=== PATIENT | female | born 1945 | race Caucasian/White ===

== ENCOUNTER → 2016-09-01 | Outpatient (CLI) | payer OTHER ==
[~2016-09-01] MED LIST: ASPI81TA28 PO; ATOR10TA82 PO; CHOL2000 PO; CLOP1TAB15 PO; EZET10TA63 PO; HYDR-5688 PO; INSU100I23 SQ; LISI40TA PO; NVLGI/PEN SQ; SPIR25TA PO
[2016-09-01 12:35] LABS: ESTIMATED AVERAGE GLUCOSE 263 mg/dl; HA1C FLAG Normal (Normal)
[2016-09-01 12:50] LABS: RATIO 24.6 mcg/mg (0-30.0)
== END | disposition home or self-care (01) ==
LOC: C.LABBFT 09:15
PROVIDERS: ATTEND Nurse Practitioner Family
DX: E11.65 Type 2 diabetes mellitus with hyperglycemia (principal)

== ENCOUNTER → 2016-12-17 | Day surgery (SDC) | payer OTHER ==
[2016-11-27 12:02] VITALS: Ht 165.1 cm; Wt 93.6 kg
[~2016-12-17] VITALS: Ht 165.1 cm; Wt 93.6 kg
[~2016-12-17] MED LIST changes: +500ML BSS 0.3ML EPI 1:1000PF IRRIG ONE; +ACETAMINOPHEN 325 MG TAB PO PRN; +AMVISC PLUS 0.8ML SYRINGE INT OCU ONE; -ATOR10TA82 PO; +ATOR10TA88 PO; +ATROPINE SULFATE 0.1 MG/ML 5ML SYR IV PRN; +BETAXOLOL HCL 0.25% OP SUSP PER DROP CHARGE OPR SCH; +BRIMONIDINE TART 0.2% OP SOLN PER DROP CHARGE ONE; +BSS FLUSH ONE; +ENDOCOAT 0.85ML SYRINGE INT OCU ONE; -EZET10TA63 PO; +EpHEDrine SULFATE INJ 50 MG/ML AMP IV PRN; +EpINEphrine INJ 1MG/ML AMP 1 MG/ML AMP ONE; +FENTANYL CITRATE INJ 50 MCG/1 ML 2 ML VIAL IV PRN; +FLUMAZENIL 0.1 MG/1 ML 10 ML VIAL IV PRN; +HYDROmorphone INJ 2 MG/ML SYR/VIAL IV PRN; +LABETALOL HCL IV 5 MG/ML 20ML IV PRN; +LACTATED RINGER'S 1000ML 500 ML IV SCH; +LIDOCAINE 4% OP SOLN DROP CHARGE ONE; +LIDOCAINE 4% OP SOLN DROP CHARGE OPR SCH; +LIDOCAINE HCL 1% MPF 2 ML VIAL ONE; +MEPERIDINE HCL 25 MG/ML CARP IV PRN; +MIDAZOLAM HCL 1 MG/ML 2ML VIAL ONE; +MIX: 4ML BSS 1ML EPI 1:1000 PF INSTIL ONE; +MOXIFLOXACIN OPH SOLN PER DROP CHARGE ONE; +NALOXONE HCL 0.4 MG/1 ML VIAL/CARP IV PRN; +OCUCOAT 1 ML SOLN IO ONE; +ONDANSETRON INJ 2 MG/ML 2 ML VIAL IV PRN; +PHENYLEPHRINE 100MCG/ML 5ML SYR IV PRN; +POVIDONE-IODINE OP SOLN 30 ML BTL ONE; +PROPARACAINE 0.5% OP SOLN PER DROP CHARGE OPR SCH; +TOBRAMYCIN/DEXAMETHASONE OPH OINT PER APPLN CHARGE ONE
--- NOTE | 2016-12-17 08:54 | History & Physical Bridge - SC ---
H&P Re-Evaluation Bridge Note: I have examined the patient, reviewed the History & Physical and in the interval since the performance of the History & Physical I have noted the following changes of clinical significance: No changes noted
[2016-12-17] MEDS: PHENYLEPHRINE HCL 2.5% OP SOLN PER DROP CHARGE OPR SCH ×2 (09:45→09:50)
[2016-12-17] MEDS: TROPICAMIDE 1% OP SOLN PER DROP CHARGE OPR SCH ×2 (09:46→09:51)
[2016-12-17] MEDS: CYCLOPENTOLATE HCL 1% OP SOLN PER DROP CHARGE OPR SCH ×2 (09:47→09:52)
[2016-12-17] MEDS: MOXIFLOXACIN OPH SOLN PER DROP CHARGE OPR SCH ×2 (09:48→09:58)
--- NOTE | 2016-12-17 11:02 | Discharge Instructions-SurgCtr ---
Discharge Instructions Date of Service Dec 17, 2016. Visit Reason for Visit: Cataract Right Eye Discharge Discharge Diagnosis / Problem: lens implant right eye Discharge Goals Goal(s): Improve function Activity Recommendations Activity Limitations: resume your previous activity Lifting Limitations: no more than 10 pounds Exercise/Sports Limitations: gradually increase as tolerated May Resume Sexual Activity: when tolerated Shower/Bathe: tomorrow Driving or Machine Use: resume 1 day after discharge Anesthesia . Post Anesthesia Instructions: If you have had General Anesthesia or IV Sedation: * Do not drive today. * Resume driving when surgeon permits. * Do not make important decisions or sign legal documents today. * Call surgeon for: 1. Temperature elevations greater than 101 degrees F. 2. Uncontrollable pain. 3. Excessive bleeding. 4. Persistent nausea and vomiting. 5. Medication intolerance (nausea, vomiting or rash). * For nausea and vomiting use only clear liquids such as: tea, soda, bouillon until nausea subsides, then gradually increase diet as tolerated. * If you have any concerns or questions, call your surgeon's office. If physician is unavailable and it is an emergency, call 911 or go to the nearest emergency room. . Instructions / Follow-Up Instructions / Follow-Up ACTIVITY RECOMMENDATIONS: * Light activities. * Mild irritation and blurred vision are common for the first few days. * You may walk outside, read, watch television. * Redness around the white part of the eye is common. MEDICATIONS: Resume previous medications unless instructed otherwise by your surgeon. Start all eye drops at 2 pm today: * Eye drops (today and tomorrow): Prednisone - one drop in operative eye every 3 hours while awake Ofloxacin - one drop in operative eye every 3 hours while awake Ilevro - one drop in operative eye once a day SPECIAL CARE INSTRUCTIONS: * Tape plastic shield over eye to sleep at night. Call your doctor at with any concerns or problems. FOLLOW UP VISIT: Follow-up with Dr Montez at [place] office as scheduled. Diet Recommendations Home Diet: no limitations Procedures Procedures Performed: cataract extraction with lens implant Pending Studies Studies pending at discharge: no Medical Emergencies . Who to Call and When: Medical Emergencies: If at any time you feel your situation is an emergency, please call 911 immediately. . Non-Emergent Contact Non-Emergency issues call your: Teacher [employer] Call Non-Emergent contact if: your pain is not controlled [phone] . . "Provider Documentation" section prepared by Benji Montez. .
--- NOTE | 2016-12-17 11:04 | [facility] Operative Report ---
Operative Report Date of Service Dec 17, 2016. Operative Report 1. PREOPERATIVE DIAGNOSIS: Senile nuclear cataract, right eye. 2. POSTOPERATIVE DIAGNOSIS: Senile nuclear cataract, right eye. 3. PROCEDURE: Phacoemulsification of right cataract with posterior chamber lens implant, type Bausch & Lomb, model MI60L, power +23.5 diopters. ANESTHESIA: Local standby. SURGEON: Dr. Montez. COMPLICATIONS: None. OPERATING TIME: 10 minutes. 4. OPERATION AND FINDINGS: DESCRIPTION OF PROCEDURE: The right pupil was dilated. The anesthetic was administered using a topical technique. The right eye was prepped and draped. A speculum was placed. A clear corneal incision was formed. The chamber was filled with Amvisc Plus and Endocoat. Epinephrine solution was used. A paracentesis was placed. A capsulorrhexis was performed. The nucleus was hydrodissected. A dense lens was removed with phacoemulsification. Time was 12.50 seconds. The aspiration unit was used to remove the cortex. The capsule was filled with Amvisc Plus. The lens implant was folded and placed into the capsule. The incision was hydrated. The Amvisc was aspirated. The wound was secure. The chamber was deep. The pupil was round. Brimonidine, TobraDex ointment and Vigamox solution were placed. The speculum was removed. The patient was returned to the Recovery Room in stable condition. I attest to the content of the Intraoperative Record and any orders documented therein. Any exceptions are noted below. The scribe's documentation has been prepared in my presence, under my direction and personally reviewed by me in its entirety. I confirm that the note above accurately reflects all work, treatment, procedures, and medical decision making performed by me. I personally scribed for Benji Montez M.D. ([place]) on 12/17/16 at 11:04. Electronically submitted by Courtney Toro ([facility]).
[2016-12-17 11:06] VITALS: TEMP 36.3
--- NOTE | 2016-12-17 11:16 | Anesthesia Progress Nt - [facility] ---
Anesthesia Post Op Note Date & Time Dec 17, 2016 at 11:15 Vital Signs Pain Intensity: 0 Vital Signs Past 12 Hours Date Time Temp Pulse Resp B/P (MAP) Pulse Ox O2 Delivery O2 Flow Rate FiO2 12/17/16 11:06 36.3 65 16 163/75 (104) 96 Room Air 12/17/16 09:36 36.8 58 22 149/79 (102) 95 Room Air Notes Mental Status: alert / awake / arousable, participated in evaluation Pt Amnestic to Procedure: Yes Nausea / Vomiting: adequately controlled Pain: adequately controlled Airway Patency, RR, SpO2: stable & adequate BP & HR: stable & adequate Hydration State: stable & adequate Anesthetic Complications: no major complications apparent
[2016-12-17 11:29] VITALS: BP 113/71; PULSE 54; O2SAT 94
== END | disposition home or self-care (01) ==
LOC: X.SURG 08:57
PROVIDERS: ATTEND Specialist
DX: H25.11 Age-related nuclear cataract, right eye (principal); I10 Essential (primary) hypertension; Z79.899 Other long term (current) drug therapy; Z79.82 Long term (current) use of aspirin

== ENCOUNTER → 2017-01-07 | Day surgery (SDC) | payer OTHER ==
[2016-12-25 14:53] VITALS: Ht 165.1 cm; Wt 93.6 kg
[~2017-01-07] VITALS: Ht 165.1 cm; Wt 93.6 kg
[~2017-01-07] MED LIST changes: +BETAXOLOL HCL 0.25% OP SUSP PER DROP CHARGE OPL SCH; -BETAXOLOL HCL 0.25% OP SUSP PER DROP CHARGE OPR SCH; -FENTANYL CITRATE INJ 50 MCG/1 ML 2 ML VIAL IV PRN; -FLUMAZENIL 0.1 MG/1 ML 10 ML VIAL IV PRN; -HYDROmorphone INJ 2 MG/ML SYR/VIAL IV PRN; -LABETALOL HCL IV 5 MG/ML 20ML IV PRN; +LIDOCAINE 4% OP SOLN DROP CHARGE OPL SCH; -LIDOCAINE 4% OP SOLN DROP CHARGE OPR SCH; -MEPERIDINE HCL 25 MG/ML CARP IV PRN; -NALOXONE HCL 0.4 MG/1 ML VIAL/CARP IV PRN; +NovoLIN-R INSULIN PER UNIT CHARGE IV STA; +NovoLIN-R INSULIN PER UNIT CHARGE ONE; -ONDANSETRON INJ 2 MG/ML 2 ML VIAL IV PRN; -PHENYLEPHRINE 100MCG/ML 5ML SYR IV PRN; +PROPARACAINE 0.5% OP SOLN PER DROP CHARGE OPL SCH; -PROPARACAINE 0.5% OP SOLN PER DROP CHARGE OPR SCH
[2017-01-07] MEDS: PHENYLEPHRINE HCL 2.5% OP SOLN PER DROP CHARGE OPL SCH ×2 (09:11→09:16)
[2017-01-07] MEDS: TROPICAMIDE 1% OP SOLN PER DROP CHARGE OPL SCH ×2 (09:12→09:17)
[2017-01-07] MEDS: CYCLOPENTOLATE HCL 1% OP SOLN PER DROP CHARGE OPL SCH ×2 (09:13→09:18)
[2017-01-07] MEDS: MOXIFLOXACIN OPH SOLN PER DROP CHARGE OPL SCH ×2 (09:14→09:24)
--- NOTE | 2017-01-07 10:03 | Discharge Instructions-SurgCtr ---
Discharge Instructions Date of Service Jan 07, 2017. Visit Reason for Visit: Cataract Left Eye Discharge Discharge Diagnosis / Problem: lens implant left eye Discharge Goals Goal(s): Improve function Medications Stopped Medications Name(s): plavix and asa last dose on thursday Activity Recommendations Activity Limitations: resume your previous activity Lifting Limitations: no more than 10 pounds Exercise/Sports Limitations: gradually increase as tolerated May Resume Sexual Activity: when tolerated Shower/Bathe: tomorrow Driving or Machine Use: resume 1 day after discharge Anesthesia . Post Anesthesia Instructions: If you have had General Anesthesia or IV Sedation: * Do not drive today. * Resume driving when surgeon permits. * Do not make important decisions or sign legal documents today. * Call surgeon for: 1. Temperature elevations greater than 101 degrees F. 2. Uncontrollable pain. 3. Excessive bleeding. 4. Persistent nausea and vomiting. 5. Medication intolerance (nausea, vomiting or rash). * For nausea and vomiting use only clear liquids such as: tea, soda, bouillon until nausea subsides, then gradually increase diet as tolerated. * If you have any concerns or questions, call your surgeon's office. If physician is unavailable and it is an emergency, call 911 or go to the nearest emergency room. . Instructions / Follow-Up Instructions / Follow-Up ACTIVITY RECOMMENDATIONS: * Light activities. * Mild irritation and blurred vision are common for the first few days. * You may walk outside, read, watch television. * Redness around the white part of the eye is common. MEDICATIONS: Resume previous medications unless instructed otherwise by your surgeon. Start all eye drops at 1 pm today: * Eye drops (today and tomorrow): Prednisone - one drop in operative eye every 3 hours while awake Ofloxacin - one drop in operative eye every 3 hours while awake Ilevro - one drop in operative eye once daily SPECIAL CARE INSTRUCTIONS: * Tape plastic shield over eye to sleep at night. Call your doctor at with any concerns or problems. FOLLOW UP VISIT: Follow-up with Dr Montez at [place] office as scheduled. Diet Recommendations Home Diet: no limitations Procedures Procedures Performed: cataract extraction with lens implant Pending Studies Studies pending at discharge: no Medical Emergencies . Who to Call and When: Medical Emergencies: If at any time you feel your situation is an emergency, please call 911 immediately. . Non-Emergent Contact Non-Emergency issues call your: [employer] Other Ranks Call Non-Emergent contact if: your pain is not controlled [phone] . . "Provider Documentation" section prepared by Benji Montez. .
--- NOTE | 2017-01-07 10:04 | [facility] Operative Report ---
Operative Report Date of Service Jan 07, 2017. Operative Report 1. PREOPERATIVE DIAGNOSIS: Senile nuclear cataract, left eye. 2. POSTOPERATIVE DIAGNOSIS: Senile nuclear cataract, left eye. 3. PROCEDURE: Phacoemulsification of left cataract with posterior chamber lens implant, type Bausch & Lomb, model MI60L, power +24.0 diopters. ANESTHESIA: Local standby. SURGEON: Dr. Montez. COMPLICATIONS: None. OPERATING TIME: 10 minutes. 4. OPERATION AND FINDINGS: DESCRIPTION OF PROCEDURE: The left pupil was dilated. The anesthetic was administered using a topical technique. The left eye was prepped and draped. A speculum was placed. A clear corneal incision was formed. The chamber was filled with Amvisc Plus and Endocoat. Epinephrine solution was used. A paracentesis was placed. A capsulorrhexis was performed. The nucleus was hydrodissected. The lens was removed with phacoemulsification. Time was 6.18 seconds. The aspiration unit was used to remove the cortex. The capsule was filled with Amvisc Plus. The lens implant was folded and placed into the capsule. The incision was hydrated. The Amvisc was aspirated. The wound was secure. The chamber was deep. The pupil was round. Brimonidine, TobraDex ointment and Vigamox solution were placed. The speculum was removed. The patient was returned to the Recovery Room in stable condition. I attest to the content of the Intraoperative Record and any orders documented therein. Any exceptions are noted below. The scribe's documentation has been prepared in my presence, under my direction and personally reviewed by me in its entirety. I confirm that the note above accurately reflects all work, treatment, procedures, and medical decision making performed by me. I personally scribed for Benji Montez M.D. ([place]) on 01/07/17 at 10:04. Electronically submitted by Courtney Toro ([email or web address]).
--- NOTE | 2017-01-07 10:23 | Anesthesia Progress Nt - [facility] ---
Anesthesia Post Op Note Date & Time Jan 07, 2017 at 10:23 Vital Signs Pain Intensity: 0 Vital Signs Past 12 Hours Date Time Temp Pulse Resp B/P (MAP) Pulse Ox O2 Delivery O2 Flow Rate FiO2 01/07/17 09:03 36.6 62 22 149/81 (103) 95 Room Air Notes Mental Status: alert / awake / arousable, participated in evaluation Pt Amnestic to Procedure: Yes Nausea / Vomiting: adequately controlled Pain: adequately controlled Airway Patency, RR, SpO2: stable & adequate BP & HR: stable & adequate Hydration State: stable & adequate Anesthetic Complications: no major complications apparent
[2017-01-07 10:45] VITALS: BP 125/71; PULSE 65; O2SAT 95
== END | disposition home or self-care (01) ==
LOC: X.SURG 08:38
PROVIDERS: ATTEND Specialist
DX: H25.12 Age-related nuclear cataract, left eye (principal); I10 Essential (primary) hypertension; E11.9 Type 2 diabetes mellitus without complications; Z79.84 Long term (current) use of oral hypoglycemic drugs; Z79.899 Other long term (current) drug therapy

== ENCOUNTER → 2017-03-26 | Outpatient (CLI) | payer OTHER ==
[~2017-03-26] MED LIST changes: -500ML BSS 0.3ML EPI 1:1000PF IRRIG ONE; -ACETAMINOPHEN 325 MG TAB PO PRN; -AMVISC PLUS 0.8ML SYRINGE INT OCU ONE; +ATOR10TA82 PO; -ATOR10TA88 PO; -ATROPINE SULFATE 0.1 MG/ML 5ML SYR IV PRN; -BETAXOLOL HCL 0.25% OP SUSP PER DROP CHARGE OPL SCH; -BRIMONIDINE TART 0.2% OP SOLN PER DROP CHARGE ONE; -BSS FLUSH ONE; -ENDOCOAT 0.85ML SYRINGE INT OCU ONE; -EpHEDrine SULFATE INJ 50 MG/ML AMP IV PRN; -EpINEphrine INJ 1MG/ML AMP 1 MG/ML AMP ONE; -LACTATED RINGER'S 1000ML 500 ML IV SCH; -LIDOCAINE 4% OP SOLN DROP CHARGE ONE; -LIDOCAINE 4% OP SOLN DROP CHARGE OPL SCH; -LIDOCAINE HCL 1% MPF 2 ML VIAL ONE; -MIDAZOLAM HCL 1 MG/ML 2ML VIAL ONE; -MIX: 4ML BSS 1ML EPI 1:1000 PF INSTIL ONE; -MOXIFLOXACIN OPH SOLN PER DROP CHARGE ONE; -NovoLIN-R INSULIN PER UNIT CHARGE IV STA; -NovoLIN-R INSULIN PER UNIT CHARGE ONE; -OCUCOAT 1 ML SOLN IO ONE; -POVIDONE-IODINE OP SOLN 30 ML BTL ONE; -PROPARACAINE 0.5% OP SOLN PER DROP CHARGE OPL SCH; -TOBRAMYCIN/DEXAMETHASONE OPH OINT PER APPLN CHARGE ONE
[2017-03-26 14:03] LABS: ALT/SGPT 19 U/L (12-78); BLOOD UREA NITROGEN 21 mg/dl (7-18); CALCIUM 9.3 mg/dl (8.5-10.1); CARBON DIOXIDE 27 mmol/L (21-32); CREATININE 0.75 mg/dl (0.60-1.20); GLUCOSE 188 mg/dl (70-99); POTASSIUM 3.8 mmol/L (3.5-5.1); SODIUM 137 mmol/L (136-145)
[2017-03-26 14:07] LABS: CHOLESTEROL 193 mg/dl (0-200); LDL CHOLESTEROL CALCULATED 102 mg/dl
== END | disposition home or self-care (01) ==
LOC: C.LABBFT 08:40
PROVIDERS: ATTEND Family Medicine
DX: E78.00 Pure hypercholesterolemia, unspecified (principal); I10 Essential (primary) hypertension; E83.42 Hypomagnesemia

== ENCOUNTER → 2017-10-13 | Outpatient (CLI) | payer OTHER ==
[2017-10-13 13:14] LABS: HEMOGLOBIN A1C 9.3 % (4.5-5.6)
[2017-10-13 13:53] LABS: ALT/SGPT 15 U/L (12-78); BLOOD UREA NITROGEN 10 mg/dl (7-18); CALCIUM 9.4 mg/dl (8.5-10.1); CARBON DIOXIDE 28 mmol/L (21-32); CHOLESTEROL 165 mg/dl (0-200); CREATININE 0.66 mg/dl (0.60-1.20); GLUCOSE 116 mg/dl (70-99); LDL CHOLESTEROL CALCULATED 85 mg/dl; POTASSIUM 3.8 mmol/L (3.5-5.1); SODIUM 141 mmol/L (136-145)
== END | disposition home or self-care (01) ==
LOC: C.LABBFT 09:42
PROVIDERS: ATTEND Nurse Practitioner Family
DX: E11.65 Type 2 diabetes mellitus with hyperglycemia (principal); E78.00 Pure hypercholesterolemia, unspecified; I10 Essential (primary) hypertension; Z79.4 Long term (current) use of insulin

== ENCOUNTER 2023-01-30 14:36 | Inpatient (IN) ==
--- NOTE | 2023-01-30 14:52 | Emergency Department Note ---
Impression & Plan Atrial fibrillation with rapid ventricular response, Shortness of breath ED Provider Note HISTORY OF PRESENT ILLNESS: Patient is a 77-year-old female presenting with shortness of breath. Patient was sent over from her doctor's office for shortness of breath. Patient states she has been having progressively worsening shortness of breath over the last 2 months. States in the last week it has been significantly worse. She is short of breath with any sort of exertion and at rest. Denies any chest pain or palpitations. Denies any lightheadedness or dizziness. Her EKG showed atrial fibrillation with RVR and she was referred to the ER. Patient denies any DVT or PE history. 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 Denies any history of cardiac stents. Denies any recent cough or fevers. ROS: as above PHYSICAL EXAM: Constitutional: Patient appears in no acute distress. HENT: Head: Normocephalic and atraumatic. Eyes: EOMI, PERRL Mouth/Throat: Mucous membranes moist. Neck: Trachea midline. Neck supple. Cardiovascular: Tachycardic with irregularly irregular rhythm. No murmurs, rubs or gallops. Intact distal pulses. Pulmonary/Chest: No respiratory distress. Breath sounds clear and equal bilaterally. No wheezes or rales. No chest wall tenderness to palpation. Abdominal: Abdomen soft, no tenderness, rebound or guarding. Musculoskeletal: No edema, tenderness or deformity noted. Skin: Warm and dry. No rash, erythema, pallor or cyanosis Psychiatric: Appropriate mood and affect for situation. Neurological: Alert and keenly responsive. CN II-XII grossly intact, moving all extremities equally and fully. MDM: - Vitals signs showed hypertension and tachycardia. - History obtained via patient. Patient presents with shortness of breath. Patient states she has been feeling short of breath for the last 2 months, but more notably in the last week or so. States that she feels short of breath without fluctuation with exertion. Denies any DVT or PE history. She is on Plavix and aspirin. Denies any lightheadedness or dizziness or chest pain. She was seen at her doctor's office and found to be in A-fib with RVR and was referred to the ER. Patient has no prior history of A-fib. - Chronic conditions affecting care: DM-2; HLD - Differential diagnoses include, but are not limited to: ACS; pneumonia; CHF exacerbation; viral syndrome; electrolyte abnormality; PE - Order placed for continuous cardiac monitoring. At this time, monitor showed rate of 163 bpm with irregular rhythm, per my interpretation. - External medical records reviewed. EKG from outpatient clinic was reviewed. Patient was in A-fib with rapid ventricular rate. Rate of 164 bpm. - EKG reviewed by myself showed atrial fibrillation. Rate 150 bpm. QTc 477. No acute ischemic changes. - Laboratory workup interpreted by myself showed normal WBC; normal PT/INR; normal electrolytes; normal troponin; elevated BNP (274) - CXR negative for pneumonia, per my interpretation - Patient given 20 mg IV cardizem bolus and started on cardizem drip. HR came down to low 100s. -Patient symptoms are likely secondary to her new onset atrial fibrillation. Unclear how long her heart rate has been this elevated. She has been symptomatic for the last 2 months, so she was not cardioverted in the emergency department. She has not had previous echo or further cardiac work-up in the past, so will admit to the hospitalist service that she is still intermittent drip for rate control. - Discussion was had with social work lecturer about patient's case and need for admission - Hospitalist consulted for admission - Patient admitted to [facility] Hospitalist service for further evaluation and management. I provided 36 minutes of critical care time to this patient's care outside of billable procedures. ASSESSMENT AND PLAN: Diagnosis: Afib with RVR; shortness of breath Plan: admit Past Med/Surg History Medical History Diabetes type 2, uncontrolled Fracture of proximal end of left humerus Hypercholesterolemia Lumbosacral disc herniation Osteopenia Polyarthritis Proteinuria Transient ischemic attack Surgical History H/O colonoscopy H/O tubal ligation History of oral surgery History of total hysterectomy with bilateral salpingo-oophorectomy (BSO) Hx of tonsillectomy Family History Unknown Myocardial infarction Breast cancer Father Myocardial infarction Breast cancer Aunt Breast cancer Denies family history of Ovarian cancer Prostate cancer Colorectal cancer Social History Smoking Status: Never smoker Second Hand Exposure: No; Do You Dip or Chew Tobacco: No; Hx Alcohol Use: No Hx Substance Use: No Preferred Language: Upper Sorbian Communication Ability: Effective Visual Impairment: No Limitations Hearing Ability: Normal In File Operator Required: No marital status: marital status details: Spouse is in a nursing facility Current Living Situation: Alone current occupational status: retired How many Children do You have: 3 Feels Safe at Home: Yes Childhood Exposure to Second-Hand Smoke: No Diet: regular caffeine: Yes during the past year weight has: remained stable Dental Care, Regularly: Yes Physical Activity Frequency: Does not Exercise Seatbelt Use: always Sunscreen Use: Yes Assistive Devices: Glasses and Walker Allergies Allergies Allergy/AdvReac Type Severity Reaction Status Date / Time Sulfa (Sulfonamide Allergy Mild UNKNOWN Verified 01/30/23 13:19 Antibiotics) RXN-HAPPENED A CHILD Home Meds Home Medications Medication Instructions Recorded Confirmed flash glucose scanning reader 04/25/19 01/30/23 (TarenaStyle Kelly 14 Day Shellman) flash glucose sensor (FreeStyle 04/25/19 01/30/23 Kelly 14 Day Sensor kit) blood sugar diagnostic (FreeStyle #10 ea 06/03/21 01/30/23 Lite Strips) multivitamin 1 tab PO DAILY 10/11/21 01/30/23 aspirin 81 mg tablet,delayed 81 mg PO DAILY 01/30/23 01/30/23 release clopidogrel 75 mg tablet 75 mg PO QAM 01/30/23 01/30/23 Previous Rx's Medication Instructions Recorded nystatin 100,000 unit/gram topical 1 applic topical BID PRN rash #60 10/04/21 powder grams lisinopril 40 mg tablet 40 mg PO DAILY #90 tabs 04/18/22 spironolactone 25 mg tablet 25 mg PO DAILY #90 tabs 04/18/22 pen needle, diabetic 31 gauge x #400 ea 07/14/2206/05" (BD Ultra-Fine Mini Pen Needle) insulin aspart U-100 100 unit/mL See Rx Instructions subcut 09/12/22 (3 mL) subcutaneous pen (Novolog .COMPLEX #54 mL FlexPen U-100 Insulin aspart) insulin glargine 100 unit/mL (3 16 unit (0.16 mL) subcut HS #15 mL 09/12/22 mL) subcutaneous pen (Basaglar KwikPen U-100 Insulin) rosuvastatin 10 mg tablet 10 mg PO DAILY #30 tabs 01/01/23 Results & Data (ED) Vital Signs Vital Signs - 24 hr 01/30/23 14:40 01/30/23 14:50 01/30/23 15:36 Temperature 36.6 C Temperature Source Temporal Artery Scan Pulse Rate 163 H 101 H Pulse Rate from SpO2 Sensor 101 H Respiratory Rate 20 21 Respiratory Effort / Characteristics Non-Labored Spontaneous Respiratory Depth Normal Blood Pressure 165/99 H Blood Pressure Mean 121 Pulse Oximetry 93 94 91 Oxygen Delivery Method Room Air Room Air Sepsis Recent Fever Within 48 Hours No Sepsis New/Unexplained Change in Mental Status No Sepsis Action Taken by Nursing No Action Required 01/30/23 15:37 01/30/23 16:00 01/30/23 16:00 Temperature Temperature Source Pulse Rate 105 H 102 H Pulse Rate from SpO2 Sensor 109 H Respiratory Rate 16 Respiratory Effort / Characteristics Respiratory Depth Blood Pressure 120/89 Blood Pressure Mean 100 Pulse Oximetry 91 Oxygen Delivery Method Sepsis Recent Fever Within 48 Hours Sepsis New/Unexplained Change in Mental Status Sepsis Action Taken by Nursing Laboratory Data 01/30/23 15:10 01/30/23 15:10 Lab Results 01/30/23 Range/Units 15:10 WBC 8.79 (4.8-10.8) K/ul RBC 4.96 (4.20-5.40) M/uL Hgb 13.6 (12.0-16.0) g/dl Hct 42.3 (37.0-47.0) % MCV 85.3 (80.0-100.0) fL MCH 27.4 (25.0-34.0) pg MCHC 32.2 (32.0-36.0) g/dL RDW Std Deviation 46.7 H (36.4-46.3) fL RDW Coeff of [place]on 15.2 H (11.5-14.5) % Plt Count 301 (130-400) K/uL MPV 11.0 (9.4-12.4) fL Immature Gran % (Auto) 0.2 % Neut % (Auto) 71.4 % Lymph % (Auto) 15.5 % Calhoun % (Auto) 10.0 % Eos % (Auto) 1.5 % Baso % (Auto) 1.4 % Neut # (Auto) 6.28 (1.40-6.50) K/uL Lymph # (Auto) 1.36 (1.20-3.40) K/uL Calhoun # (Auto) 0.88 H (0.11-0.59) K/uL Eos # (Auto) 0.13 (0.00-0.50) K/uL Baso # (Auto) 0.12 (0.00-0.20) K/uL Immature Gran # (Auto) 0.02 (0.01-0.20) K/uL PT 11.6 (9.0-12.0) Seconds INR 1.1 (0.9-1.1) Sodium 140 (136-145) mmol/L Potassium 3.6 (3.5-5.1) mmol/L Chloride 107 (98-107) mmol/L Carbon Dioxide 24 (21-32) mmol/L Anion Gap 9 (3-11) BUN 15 (6-23) mg/dl Creatinine 0.80 (0.6-1.2) mg/dl Est Cr Clr Drug Dosing 73.5 ml/min Est GFR ( Amer) 83.6 ml/min Est GFR (Non-Af Amer) 72.1 ml/min BUN/Creatinine Ratio 18.8 (10-20) Glucose 239 H (70-99(Fasting)) mg/dl Calcium 9.6 (8.6-10.3) mg/dl Magnesium 1.7 (1.7-2.4) mg/dl Total Bilirubin 0.9 (0.2-1.0) mg/dl AST 16 (13-39) U/L ALT 12 (7-52) U/L Alkaline Phosphatase 98 (34-104) U/L Troponin I High Sens 7.9 (0-14) pg/ml B-Natriuretic Peptide 274 H (0-100) pg/ml Total Protein 7.4 (6.0-8.3) gm/dl Albumin 4.2 (3.4-5.0) gm/dl Globulin 3.2 (2.5-4.0) gm/dl Albumin/Globulin Ratio 1.3 (0.9-2) Lipase < 3 L (11-82) U/L Administered Medications Diltiazem HCl 125 mg/ Dextrose 125 mls @ 5 mls/hr IV .Q24H [facility]; Protocol Stop: 03/01/23 15:14 Last Admin: 01/30/23 15:30 Dose: 5 mg/hr, 5 mls/hr Documented By: ACC Co-signed By: KT Discontinued Medications Diltiazem HCl (Diltiazem Hcl 5 Mg/Ml 5 Ml Vial) 20 mg IV NOW STA Stop: 01/30/23 15:13 Last Admin: 01/30/23 15:23 Dose: 20 mg Documented By: ACC Co-signed By: AB Imaging Data Radiologist's Impression: Chest X-Ray 01/30/23 14:50 XR chest 1V portable CLINICAL HISTORY: Chest pain, nonspecific TECHNIQUE: Single frontal radiograph of the chest was obtained. Comparison: None available at the time of this dictation. FINDINGS: Exam is limited by underpenetration. Calcified aortic knob is seen. There is atelectasis at the left lung base. No evidence of pleural effusion or pneumothorax. IMPRESSION: Atelectasis at the left lung base, otherwise unremarkable. ACT 112: Negative or not required by law. Electronically signed by: Jonas Spear M.D. 01/30/2023 3:34 PM Discharge Plan Visit Data Chief Complaint: Cardiac Assessment Stated Complaint: DOC REF,AFIB,HYPERTENSION ED Provider: Joann Wallis Discharge Problem: Atrial fibrillation with rapid ventricular response, Shortness of breath Forms Stand Alone Forms: [facility]ob Prescriptions Prescriptions: No Action nystatin 100,000 unit/gram powder 1 applic topical BID PRN (Reason: rash) Qty: 60 0RF lisinopril 40 mg tablet 40 mg PO DAILY Qty: 90 3RF spironolactone 25 mg tablet 25 mg PO DAILY Qty: 90 3RF (DME) pen needle, diabetic [BD Ultra-Fine Mini Pen Needle] 31 gauge x 3/16" needle See Rx Instructions .ROUTE .MEDSUPPLY Qty: 400 3RF Rx Instructions: Inject insulin four times daily Novolog FlexPen U-100 Insulin 100 unit/mL (3 mL) insulin pen See Rx Instructions subcut .COMPLEX Qty: 54 3RF Rx Instructions: 10-12 units subcutaneously with breakfast, 16-18 units with lunch, 12 units with supper; TDD 50 units insulin glargine [Basaglar KwikPen U-100 Insulin] 100 unit/mL (3 mL) insulin pen 16 unit SQ HS Qty: 15 3RF (DME) FreeStyle Lite Strips Strip See Rx Instructions .ROUTE .MEDSUPPLY Qty: 10 Rx Instructions: Test blood sugar once daily PRN (DME) FreeStyle Kelly 14 Day Shellman Misc See Dose Instructions .ROUTE .MEDSUPPLY Dose Instruction: As directed Rx Instructions: testing 6 times per day (DME) FreeStyle Kelly 14 Day Sensor Kit See Dose Instructions .ROUTE .MEDSUPPLY Dose Instruction: As directed Rx Instructions: test 6 times per day rosuvastatin 10 mg tablet 10 mg PO DAILY Qty: 30 5RF multivitamin Tablet 1 tab PO DAILY aspirin [Aspirin Low-Strength] 81 mg Tablet,Delayed Release (Dr/Ec) 81 mg PO DAILY clopidogrel 75 mg tablet 75 mg PO QAM Referrals Referrals: Anne Allison MD [Primary Care Provider] -
[2023-01-30] MEDS ORDERED: STAT IV Infusion **Titration per Protocol STA (15:12)
[2023-01-30] MEDS ORDERED: dilTIAZem HCl 5 MG/ML 5 ML VIAL IV STA (15:12)
[2023-01-30 15:24] LABS: Basophils # (auto) 0.12 K/uL (0.00-0.20); Basophils % (auto) 1.4 %; Eosinophils # (auto) 0.13 K/uL (0.00-0.50); Eosinophils % (auto) 1.5 %; Hematocrit (blood only) 42.3 % (37.0-47.0); Hemoglobin 13.6 g/dl (12.0-16.0); Immature Granulocytes # (auto) 0.02 K/uL (0.01-0.20); Immature Granulocytes % (auto) 0.2 %; Lymphocytes # (auto) 1.36 K/uL (1.20-3.40); Lymphocytes % (auto) 15.5 %; Mean Corpuscular Hemoglobin 27.4 pg (25.0-34.0); Mean Corpuscular Hgb Conc 32.2 g/dL (32.0-36.0); Mean Corpuscular Volume 85.3 fL (80.0-100.0); Monocytes # (auto) 0.88 K/uL (0.11-0.59); Neutrophils # (auto) 6.28 K/uL (1.40-6.50); Neutrophils % (auto) 71.4 %; Platelet Count 301 K/uL (130-400); RDW Coefficient of Variation 15.2 % (11.5-14.5); RDW Standard Deviation 46.7 fL (36.4-46.3); Red Blood Count 4.96 M/uL (4.20-5.40); White Blood Count 8.79 K/ul (4.8-10.8)
[2023-01-30] MEDS: dilTIAZem HCL 125 MG in DEXTROSE 5% 100 ML IV SCH (15:30)
--- NOTE | 2023-01-30 15:35 | XRay Report ---
XR chest 1V portable CLINICAL HISTORY: Chest pain, nonspecific TECHNIQUE: Single frontal radiograph of the chest was obtained. Comparison: None available at the time of this dictation. FINDINGS: Exam is limited by underpenetration. Calcified aortic knob is seen. There is atelectasis at the left lung base. No evidence of pleural effusion or pneumothorax. IMPRESSION: Atelectasis at the left lung base, otherwise unremarkable. ACT 112: Negative or not required by law. Electronically signed by: Jonas Spear M.D. 01/30/2023 3:34 PM
[2023-01-30 15:40] LABS: Anion Gap 9 (3-11); BUN Creatinine Ratio 18.8 (10-20); Blood Urea Nitrogen 15 mg/dl (6-23); Calcium 9.6 mg/dl (8.6-10.3); Carbon Dioxide 24 mmol/L (21-32); Chloride 107 mmol/L (98-107); Creatinine Clr Calc Pharmacy 73.5 ml/min; Est GFR (African American) 83.6 ml/min; Est GFR (Non-African American) 72.1 ml/min; Glucose 239 mg/dl (70-99(Fasting)); Potassium 3.6 mmol/L (3.5-5.1); Sodium 140 mmol/L (136-145)
[2023-01-30 15:46] LABS: Alanine Aminotransferase 12 U/L (7-52); Albumin Globulin Ratio 1.3 (0.9-2); Albumin Level 4.2 gm/dl (3.4-5.0); Alkaline Phosphatase 98 U/L (34-104); Aspartate Aminotransferase 16 U/L (13-39); Bilirubin,Total 0.9 mg/dl (0.2-1.0); Globulin 3.2 gm/dl (2.5-4.0); Lipase < 3 U/L (11-82); Magnesium 1.7 mg/dl (1.7-2.4); Total Protein 7.4 gm/dl (6.0-8.3); Troponin I High Sensitivity 7.9 pg/ml (0-14)
[2023-01-30 15:51] LABS: INR 1.1 (0.9-1.1); Prothrombin Time 11.6 Seconds (9.0-12.0)
--- NOTE | 2023-01-30 17:10 | History & Physical Report ---
Date of Service January 30, 2023 Assessment & Plan (1) Atrial fibrillation with rapid ventricular response: Plan: New onset A-fib Symptoms for 1 month. No chest pain. Easy exertional dyspnea and generalized fatigue RVR admission, was placed on Cardizem gtt while in the ER with some improvement with rates downtrending from 1 60-1 201 30 No known history of reduced EF, she does endorse some shortness of breath without weight gain or leg edema. Will attempt to transition to metoprolol, 2.5 mg IV dose x1 given and twice daily metoprolol p.o. started. Wean Cardizem as able Echo pending, if reduced EF discontinue CCB and obtain rate control with eithe r metoprolol or digoxin. Amiodarone not recommended as patient has not been anticoagulated and has had up to 1 months of A-fib Risks/Benefits of stroke prophylaxis discussed with patient at bedside. Based on CHADS2 Vasc of 7 she is high risk for stroke. Recommend lifelong anticoagulation. Risks including bleeding/ICH reviewed. Patient agreeable to initiating Eliquis at time of admission. 5 mg twice daily started High sensitive troponin negative, no chest pain, no signs of ACS (2) Hypertension goal BP (blood pressure) < 130/80: Plan: Home antihypertensives continued (3) Diabetes type 2, uncontrolled: Plan: Patient takes her long-acting insulin in the evening. Continue 16 units of basal, will add SSI based on basal requirements. DM/heart healthy diet goal BSG 1 101 for (4) Hypercholesterolemia: Plan: Continue received Plan DVT prophylaxis: Anticoagulated Diet: DM/heart healthy Disposition: PCU for A-fib with RVR CODE STATUS: Full code History of Present Illness Primary Care Provider: Anne Allison MD New onset afib picked up on PCP office. She has had fatigue and easy exertional dyspnea for 1 month without chest pain. She has noticed some global shortness of breath, thinks she is a little more short of breath when laying flat. She has had no leg swelling. No wheezing. She has not had A-fib previously. She has had no problems with blood clots, no history of bleeding or GERD/ulcers. She is never required a blood transfusion. She takes DAPT for stroke 22 years ago. Has residual L sided weakness with no recent change. She feels well at the bedside, and feels normal at time of assessment while resting in bed. Heart rate remains approximately 130. She denies any personal or family history of ACS/MS. She endorses diabetes and hypertension for which she did take her insulin and medications this morning. Denies tobacco and alcohol use. Denies recent illness and has had no fever/chills/sweats/lightheadedness/dizziness. Denies syncope/presyncope Medical History: Reviewed Medications: Reviewed Surgical History: Reviewed Family history: Reviewed Allergies: Reviewed Social History: as noted Code Status: Full Allergies Allergy/AdvReac Type Severity Reaction Status Date / Time Sulfa (Sulfonamide Allergy Mild UNKNOWN Verified 01/30/23 13:19 Antibiotics) RXN-HAPPENED A CHILD Home Medications Medication Instructions Recorded Confirmed Type flash glucose scanning reader 04/25/19 01/30/23 History (FreeStyle Kelly 14 Day [place]) flash glucose sensor (FreeStyle 04/25/19 01/30/23 History Kelly 14 Day Sensor kit) blood sugar diagnostic (FreeStyle #10 ea 06/03/21 01/30/23 History Lite Strips) nystatin 100,000 unit/gram topical 1 applic topical BID PRN rash #60 10/04/21 01/30/23 Rx powder grams multivitamin 1 tab PO DAILY 10/11/21 01/30/23 History lisinopril 40 mg tablet 40 mg PO DAILY #90 tabs 04/18/22 01/30/23 Rx spironolactone 25 mg tablet 25 mg PO DAILY #90 tabs 04/18/22 01/30/23 Rx pen needle, diabetic 31 gauge x #400 ea 07/14/22 01/30/23 Rx 3/16" (BD Ultra-Fine Mini Pen Needle) insulin aspart U-100 100 unit/mL See Rx Instructions subcut 09/12/22 01/30/23 Rx (3 mL) subcutaneous pen (Novolog .COMPLEX #54 mL FlexPen U-100 Insulin aspart) insulin glargine 100 unit/mL (3 16 unit (0.16 mL) subcut HS #15 mL 09/12/22 01/30/23 Rx mL) subcutaneous pen (Basaglar KwikPen U-100 Insulin) rosuvastatin 10 mg tablet 10 mg PO DAILY #30 tabs 01/01/23 01/30/23 Rx aspirin 81 mg tablet,delayed 81 mg PO DAILY 01/30/23 01/30/23 History release clopidogrel 75 mg tablet 75 mg PO QAM 01/30/23 01/30/23 History Past Med/Surg History Medical History Diabetes type 2, uncontrolled Fracture of proximal end of left humerus Hypercholesterolemia Lumbosacral disc herniation Osteopenia Polyarthritis Proteinuria Transient ischemic attack Surgical History H/O colonoscopy H/O tubal ligation History of oral surgery History of total hysterectomy with bilateral salpingo-oophorectomy (BSO) Hx of tonsillectomy Family History Unknown Myocardial infarction Breast cancer Father Myocardial infarction Breast cancer Aunt Breast cancer Denies family history of Ovarian cancer Prostate cancer Colorectal cancer Social History Smoking Status: Never smoker Second Hand Exposure: No; Do You Dip or Chew Tobacco: No; Hx Alcohol Use: No Hx Substance Use: No Preferred Language: Eritrean Communication Ability: Effective Visual Impairment: No Limitations Hearing Ability: Normal 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 NAD. Cooperative. HEENT: Atraumatic, normocephalic. Vision/hearing intact Pulm: CTAB A&P. -wheezes, -rales, -rhonchi. Symmetrical chest rise. No increased work of breathing. No respiratory distress. Cardiac: Irregularly irregular, tachycardia. Radial pulses intact and symmetrical. no jvd Abdominal: Nontender, nondistended, soft. BS present. Ext: no edema, strength/sensation intact in arms and legs bilaterally Results & Data Results & Data Vital Signs (Past 12 Hours) Vital Signs Temp Pulse Resp BP Pulse Ox O2 Del Method 01/30/23 16:00 120/89 01/30/23 16:00 102 H 16 91 01/30/23 15:37 105 H 01/30/23 15:36 101 H 21 91 01/30/23 14:50 94 Room Air 01/30/23 14:40 36.6 C 163 H 20 165/99 H 93 Room Air PG Care Time/CCT Total # of Minutes Spent Total Time Spent with Patient: Total time spent is greater than 50% in coordination of care (as documented) at patient's floor/unit and/or counseling patient: Coding Level of Care Code 76671 INT INP/OBS CARE 3/75MIN Diagnoses Atrial fibrillation with rapid ventricular response I48.91 Hypertension goal BP (blood pressure) < 130/80 I10 Diabetes type 2, uncontrolled E11.65 Hypercholesterolemia E78.00
[2023-01-30] MEDS ORDERED: METOPROLOL TARTRATE 1 MG/ML VIAL IV STA (17:13)
[2023-01-30] MEDS ORDERED: CARBOHYDRATES FOR HYPOGLYCEMIA PO PRN (17:30)
[2023-01-30] MEDS ORDERED: DEXTROSE 50% 50 ML SYRINGE IV PRN (17:30)
[2023-01-30] MEDS ORDERED: GLUCOSE 10 TAB/TUBE PO PRN (17:30)
[2023-01-30] MEDS ORDERED: GLUCOSE 40% GEL 15 GM TUBE PO PRN (17:30)
[2023-01-30] MEDS ORDERED: GLUCAGON FOR INJ 1 MG VIAL SQ PRN (17:30)
[2023-01-30] MEDS ORDERED: POTASSIUM CHLORIDE CRTAB 20 MEQ TABCR PO STA (17:49)
[2023-01-30] MEDS ORDERED: ACETAMINOPHEN 325 MG TAB PO PRN (18:09)
[2023-01-30] MEDS: METOPROLOL TARTRATE 25 MG TAB PO SCH (18:42)
[2023-01-30] MEDS: MAGNESIUM SULFATE / D5W 1 GM/100 ML BAG IV SCH ×2 (19:44→21:49)
[2023-01-30] MEDS: INSULIN ASPART PER UNIT CHARGE SC SCH (20:47)
[2023-01-30] MEDS: APIXABAN 5 MG TABLET PO SCH (20:48)
[2023-01-30] MEDS ORDERED: LANTUS PER UNIT CHARGE SQ SCH (21:00)
[2023-01-30] MEDS ORDERED: METOPROLOL TARTRATE 25 MG TAB PO SCH (21:00)
[2023-01-31 00:04] LABS: Appearance Urine Clear (Clear); Bacteria Urine Automated Negative (Negative); Bilirubin Urine Negative (Negative); Blood Urine Negative (Negative); Color Urine Yellow; Epithelial Cell Urine Auto >30 /lpf (0-5); Glucose Urine UA 2+ (Negative); Ketones Urine 1+ (Negative); Leukocyte Esterase Urine Negative (Negative); Nitrite Urine Negative (Negative); Protein Urine Trace (Negative); RBC Urine Automated 0-4 /hpf (0-4); Specific Gravity Urine 1.031 (1.000-1.030); Urobilinogen Urine Negative (Negative)
[2023-01-31] MEDS: APIXABAN 5 MG TABLET PO SCH ×2 (08:56→20:59)
[2023-01-31] MEDS: CLOPIDOGREL BISULFATE 75 MG TAB PO SCH (08:56)
[2023-01-31] MEDS: METOPROLOL TARTRATE 25 MG TAB PO SCH ×2 (08:57→20:59)
[2023-01-31] MEDS: SPIRONOLACTONE 25 MG TAB PO SCH (08:57)
[2023-01-31] MEDS: ROSUVASTATIN CALCIUM 10 MG TAB PO SCH (08:57)
[2023-01-31] MEDS: MULTIVITAMIN TAB PO SCH (08:57)
[2023-01-31] MEDS: lisinopril 40 MG TAB PO SCH (08:57)
[2023-01-31] MEDS: INSULIN ASPART PER UNIT CHARGE SC SCH ×4 (09:05→21:00)
[2023-01-31 09:25] LABS: BUN Creatinine Ratio 17.7 (10-20); Calcium 9.4 mg/dl (8.6-10.3); Creatinine Clr Calc Pharmacy 70.1 ml/min; Est GFR (African American) 84.9 ml/min; Est GFR (Non-African American) 73.2 ml/min; Magnesium 2.1 mg/dl (1.7-2.4); Potassium 4.2 mmol/L (3.5-5.1)
[2023-01-31 09:26] LABS: Basophils % (auto) 1.3 %; Eosinophils # (auto) 0.13 K/uL (0.00-0.50); Eosinophils % (auto) 1.7 %; Hematocrit (blood only) 39.4 % (37.0-47.0); Hemoglobin 12.7 g/dl (12.0-16.0); Immature Granulocytes # (auto) 0.02 K/uL (0.01-0.20); Immature Granulocytes % (auto) 0.3 %; Lymphocytes # (auto) 1.17 K/uL (1.20-3.40); Lymphocytes % (auto) 15.6 %; Mean Corpuscular Hemoglobin 27.2 pg (25.0-34.0); Mean Corpuscular Hgb Conc 32.2 g/dL (32.0-36.0); Mean Corpuscular Volume 84.4 fL (80.0-100.0); Mean Platelet Volume 11.9 fL (9.4-12.4); Monocytes # (auto) 0.74 K/uL (0.11-0.59); Monocytes % (auto) 9.8 %; Neutrophils # (auto) 5.36 K/uL (1.40-6.50); Neutrophils % (auto) 71.3 %; Platelet Count 276 K/uL (130-400); RDW Coefficient of Variation 15.3 % (11.5-14.5); RDW Standard Deviation 46.2 fL (36.4-46.3); Red Blood Count 4.67 M/uL (4.20-5.40); White Blood Count 7.52 K/ul (4.8-10.8)
--- NOTE | 2023-01-31 13:20 | XCELERA ---
[id number]
[2023-01-31] MEDS: dilTIAZem HCl 60 MG TAB PO SCH ×2 (13:34→20:59)
[2023-01-31] MEDS: dilTIAZem HCL 125 MG in DEXTROSE 5% 100 ML IV SCH (14:09)
--- NOTE | 2023-01-31 19:00 | Hospitalist Progress Note ---
Date of Service January 31, 2023 Assessment & Plan (1) Atrial fibrillation with rapid ventricular response: Plan: New onset A-fib -Presented with exertional shortness of breath, doing better, heart rate is currently controlled, stop Cardizem drip, start oral Cardizem, cardiology consult for possible CORTNEY and cardioversion, echocardiogram unremarkable, continue apixaban Symptoms for 1 month. No chest pain. Easy exertional dyspnea and generalized fatigue (2) Hypertension goal BP (blood pressure) < 130/80: Plan: Blood pressure is fairly controlled with current regimen, (3) Diabetes type 2, uncontrolled: Plan: Continue basal bolus insulin regiment, continue scheduled regimen (4) Hypercholesterolemia: Plan: Continue statin Plan DVT prophylaxis: Anticoagulated Diet: DM/heart healthy Disposition: PCU for A-fib with RVR CODE STATUS: Full code Admission and Anticipated Discharge Date Admission Date: January 30, 2023 Subjective New onset A-fib with RVR, started on diltiazem drip, currently rate is around 100, stop diltiazem complaining of oral diltiazem, cardiology consult for possible CORTNEY and cardioversion, continue apixaban, patient feels better Physical Exam Physical Exam: General alert oriented x3 Neck supple thyroid is not tender Chest wall no chest wall deformity, lungs are clear to auscultation Cardiovascular irregular heart rhythm, tachycardic Abdomen soft bowel sounds active Extremities no edema no tenderness Results & Data Results & Data Vital Signs (Past 12 Hours) Vital Signs Temp Pulse Pulse Resp BP Pulse Ox O2 Del Method 01/31/23 15:53 36.9 C 89 19 135/86 94 Room Air 01/31/23 15:37 94 H 01/31/23 11:47 36.7 C 107 H 18 121/72 91 Room Air 01/31/23 08:14 96 H 01/31/23 07:34 36.7 C 104 H 18 143/79 H 92 Room Air PG Care Time/CCT Total # of Minutes Spent Total Time Spent with Patient: Total time spent is greater than 50% in coordination of care (as documented) at patient's floor/unit and/or counseling patient: Coding Level of Care Code 93423 SUB INP/OBS CARE 2/35MIN Diagnoses Atrial fibrillation with rapid ventricular response I48.91 Hypertension goal BP (blood pressure) < 130/80 I10 Diabetes type 2, uncontrolled E11.65 Hypercholesterolemia E78.00
[2023-01-31] MEDS ORDERED: LANTUS PER UNIT CHARGE SQ SCH (21:00)
[2023-02-01] MEDS ORDERED: INSULIN, Rapid-Acting PUMP SC SCH (07:30)
[2023-02-01 07:42] LABS: Basophils # (auto) 0.12 K/uL (0.00-0.20); Basophils % (auto) 1.6 %; Eosinophils # (auto) 0.17 K/uL (0.00-0.50); Eosinophils % (auto) 2.3 %; Hematocrit (blood only) 41.3 % (37.0-47.0); Hemoglobin 13.2 g/dl (12.0-16.0); Immature Granulocytes # (auto) 0.02 K/uL (0.01-0.20); Immature Granulocytes % (auto) 0.3 %; Lymphocytes # (auto) 1.87 K/uL (1.20-3.40); Lymphocytes % (auto) 24.8 %; Mean Corpuscular Hemoglobin 27.6 pg (25.0-34.0); Mean Corpuscular Volume 86.4 fL (80.0-100.0); Mean Platelet Volume 12.1 fL (9.4-12.4); Monocytes # (auto) 0.85 K/uL (0.11-0.59); Monocytes % (auto) 11.3 %; Neutrophils % (auto) 59.7 %; Platelet Count 289 K/uL (130-400); RDW Coefficient of Variation 15.1 % (11.5-14.5); RDW Standard Deviation 47.7 fL (36.4-46.3); Red Blood Count 4.78 M/uL (4.20-5.40); White Blood Count 7.53 K/ul (4.8-10.8)
[2023-02-01 08:28] LABS: Calcium 9.8 mg/dl (8.6-10.3)
[2023-02-01 08:33] LABS: Creatinine Clr Calc Pharmacy 76.9 ml/min; Est GFR (African American) 94.9 ml/min; Est GFR (Non-African American) 81.9 ml/min
[2023-02-01] MEDS: SPIRONOLACTONE 25 MG TAB PO SCH (08:35)
[2023-02-01] MEDS: CLOPIDOGREL BISULFATE 75 MG TAB PO SCH (08:35)
[2023-02-01] MEDS: MULTIVITAMIN TAB PO SCH (08:35)
[2023-02-01] MEDS: ROSUVASTATIN CALCIUM 10 MG TAB PO SCH (08:35)
[2023-02-01] MEDS: dilTIAZem HCl 60 MG TAB PO SCH ×2 (08:35→13:35)
[2023-02-01] MEDS: lisinopril 40 MG TAB PO SCH (08:35)
[2023-02-01] MEDS: METOPROLOL TARTRATE 25 MG TAB PO SCH (08:35)
[2023-02-01] MEDS: APIXABAN 5 MG TABLET PO SCH (08:35)
[2023-02-01] MEDS: INSULIN ASPART PER UNIT CHARGE SC SCH ×3 (08:43→17:52)
--- NOTE | 2023-02-01 09:09 | Cardiology Consultation ---
Date of Consultation February 01, 2023 Assessment & Plan (1) Atrial fibrillation with rapid ventricular response: (2) Shortness of breath: (3) Hypertension goal BP (blood pressure) < 130/80: (4) Hypercholesterolemia: Plan 1. Atrial fibrillation: This appears to be of recent onset, likely present for about a month although that is not clear and it could be longer based on her dental history as noted in HPI. It was possibly paroxysmal in the past since she is relatively asymptomatic with that. Without reviewing her prior stroke history it is possible this has been present for a long time. At this point it is likely persistent although we cannot be sure of that either since we do not know the duration of her current episode. Options include rate control with cardioversion after 1 month if she remains in atrial fibrillation versus CORTNEY guided therapy now. I would recommend the former, it looks as though we can get her heart rate under reasonable control and if we can do that overnight she could probably go home tomorrow and we can arrange outpatient evaluation and arrange cardioversion. If needed we could move that up and do a CORTNEY guided cardioversion. 2. Shortness of breath: It is likely that her shortness of breath is due to the atrial fibrillation, I do not think I would evaluate this specifically but see if it resolves with either rate control or resolution of her atrial fibrillation. 3. Hypertension: She has a history of hypertension, based on her prior recorded blood pressures her blood pressure is somewhat labile but using the rate controlling medications I suspect it will be adequately controlled. Her outpatient lisinopril may have to be decreased, with her diabetes it would probably be a good idea for her to remain on it. 4. Hypercholesterolemia: She is on low-dose rosuvastatin, her cholesterol is not ideally controlled. She had a cholesterol determination December 23, 2022 which was 178, her HDL however was 76 giving her non-HDL cholesterol of 102. This is fairly good, but I think it would be reasonable to try to go up on rosuvastatin if tolerated. 5. Stroke history: Since she was started on aspirin and Plavix and I do not see recent carotid studies to see whether she has specific indication for these drugs I think would be reasonable to do that. It would be better for her not to be on a platelet inhibitor as well as anticoagulation unless it is indicated. History of Present Illness Reason for Consultation: Atrial fibrillation with rapid ventricular response Attending Physician: Chandu Schulz MD History of Present Illness This is a 77-year-old woman with a history of diabetes mellitus, hypertension, hypercholesterolemia and now atrial fibrillation. She also has an interesting history of what she describes as a small stroke 20 years ago, I have not tried to find those records although it was here. She was placed on aspirin and Plavix and has remained. I do not know whether this was evaluated extensively and the cause identified over this was a cryptogenic stroke which may indicate prior atrial fibrillation. She has had about 1 month of symptoms of fatigue and dyspnea on exertion although it was not abrupt and she is not sure of the timing. She also was told that she had an irregular or perhaps fast heartbeat during a dental procedure sometime in mid-November, but afterwards she used a pulse oximeter and her heart rate was not fast but I am not sure about irregularity. An electrocardiogram done January 30, 2023 at an outpatient office showed atrial fibrillation. She therefore presented to the emergency room that day. Evaluation in the emergency room included an electrocardiogram which showed atrial fibrillation with a heart rate of 115 bpm and incomplete right bundle branch block. A prior electrocardiogram is available in our records from 2000 which did not show either atrial fibrillation or incomplete right bundle branch block (the latter could be rate related). Laboratory studies in the emergency room were unrevealing with a normal troponin. A chest x-ray was essentially unremarkable and an echocardiogram done on January 31, 2023 showed normal left ventricular size and function with an ejection fraction of 50 to 55% and mild mitral regurgitation. [place] to be similar to 2013. She was admitted, started on Eliquis 5 mg twice a day and initially on diltiazem IV drip. She was also started on metoprolol tartrate 12.5 mg twice a day and her diltiazem was converted to 60 mg 3 times daily. Beta-blockade was increased to 100 mg twice a day. Her home medications include aspirin and clopidogrel. She feels well today, she has been up to the bathroom and does not have much difficulty with that. She cannot tell for sure whether she feels better now than she did prior to admission. She does not have any exertional symptoms of palpitations. Allergies Allergy/AdvReac Type Severity Reaction Status Date / Time Sulfa (Sulfonamide Allergy Mild UNKNOWN Verified 01/30/23 13:19 Antibiotics) RXN-HAPPENED A CHILD Home Medications Medication Instructions Recorded Confirmed Type flash glucose scanning reader 04/25/19 01/30/23 History (FreeStyle Kelly 14 Day [place]) flash glucose sensor (FreeStyle 04/25/19 01/30/23 History Kelly 14 Day Sensor kit) blood sugar diagnostic (FreeStyle #10 ea 06/03/21 01/30/23 History Lite Strips) nystatin 100,000 unit/gram topical 1 applic topical BID PRN rash #60 10/04/21 01/30/23 Rx powder grams multivitamin 1 tab PO DAILY 10/11/21 01/30/23 History lisinopril 40 mg tablet 40 mg PO DAILY #90 tabs 04/18/22 01/30/23 Rx spironolactone 25 mg tablet 25 mg PO DAILY #90 tabs 04/18/22 01/30/23 Rx pen needle, diabetic 31 gauge x #400 ea 07/14/22 01/30/23 Rx 3/16" (BD Ultra-Fine Mini Pen Needle) insulin aspart U-100 100 unit/mL See Rx Instructions subcut 09/12/22 01/30/23 Rx (3 mL) subcutaneous pen (Novolog .COMPLEX #54 mL FlexPen U-100 Insulin aspart) insulin glargine 100 unit/mL (3 16 unit (0.16 mL) subcut HS #15 mL 09/12/22 01/30/23 Rx mL) subcutaneous pen (Basaglar KwikPen U-100 Insulin) rosuvastatin 10 mg tablet 10 mg PO DAILY #30 tabs 01/01/23 01/30/23 Rx aspirin 81 mg tablet,delayed 81 mg PO DAILY 01/30/23 01/30/23 History release clopidogrel 75 mg tablet 75 mg PO QAM 01/30/23 01/30/23 History Patient History Medical History Diabetes type 2, uncontrolled High glycation index Hypercholesterolemia Lumbosacral disc herniation Osteopenia Polyarthritis Proteinuria Transient ischemic attack Fracture of proximal end of left humerus Surgical History History of total hysterectomy with bilateral salpingo-oophorectomy (BSO) History of oral surgery tooth extraction Hx of tonsillectomy H/O colonoscopy H/O tubal ligation Family History Unknown Myocardial infarction Breast cancer Father Myocardial infarction Breast cancer Aunt Breast cancer Denies family history of Ovarian cancer Prostate cancer Colorectal cancer Social History Smoking Status: Never smoker Second Hand Exposure: No; Do You Dip or Chew Tobacco: No; Tobacco Cessation Education Requested by Patient: No Hx Alcohol Use: No Hx Substance Use: No Preferred Language: Mohawk Communication Ability: Effective Visual Impairment: No Limitations Hearing Ability: Normal Weatherization Installer Required: No Beliefs That Will Affect Care: Orthodoxy Orthodoxy Beliefs: restorationism marital status: marital status details: Spouse is in a nursing facility Current Living Situation: Alone current occupational status: retired How many Children do You have: 3 Other Information That Helps Us Care for You: No Feels Safe at Home: Yes Safety Concerns: Feels Safe At This Time Childhood Exposure to Second-Hand Smoke: No Diet: regular caffeine: Yes during the past year weight has: remained stable Dental Care, Regularly: Yes Physical Activity Frequency: Does not Exercise Seatbelt Use: always Sunscreen Use: Yes Assistive Devices: Cane, Glasses and Walker Review of Systems Review of Systems: All systems reviewed & are unremarkable except as noted in HPI & below Some leg swelling, possibly little worse over the last month than before but not much different. Physical Exam Physical Exam: Constitutional: Alert, cooperative and in no distress. HEENT: Unremarkable Neck: No jugular venous distention, carotid pulses are irregular but otherwise normal and equal bilaterally without bruits. Pulmonary: Clear to auscultation bilaterally. Cardiac: Irregular rhythm with no murmur, gallop or rub. Abdomen: Soft, nontender with normal bowel sounds. Extremities: No edema. Distal pulses intact. Neurologic: No focal findings. Gait is steady. Skin: No rash, ecchymoses or petechiae. Results & Data Vital Signs (Past 12 Hours) Vital Signs Temp Pulse Pulse Resp BP Pulse Ox O2 Del Method 02/01/23 07:44 90 02/01/23 07:39 36.6 C 113 H 18 129/79 93 Room Air 02/01/23 03:44 36.5 C 89 19 119/77 92 Room Air 01/31/23 22:46 36.6 C 87 19 121/83 95 Room Air Laboratory Results CBC 01/31/23 02/01/23 Range/Units 08:34 06:23 WBC 7.52 7.53 (4.8-10.8) K/ul RBC 4.67 4.78 (4.20-5.40) M/uL Hgb 12.7 13.2 (12.0-16.0) g/dl Hct 39.4 41.3 (37.0-47.0) % Plt Count 276 289 (130-400) K/uL Neut # (Auto) 5.36 4.50 (1.40-6.50) K/uL Lymph # (Auto) 1.17 L 1.87 (1.20-3.40) K/uL [place] # (Auto) 0.74 H 0.85 H (0.11-0.59) K/uL Eos # (Auto) 0.13 0.17 (0.00-0.50) K/uL Baso # (Auto) 0.10 0.12 (0.00-0.20) K/uL Comprehensive Metabolic Panel 01/31/23 02/01/23 Range/Units 08:34 06:23 Sodium 139 140 (136-145) mmol/L Potassium 4.2 4.0 (3.5-5.1) mmol/L Chloride 107 108 H (98-107) mmol/L Carbon Dioxide 22 24 (21-32) mmol/L BUN 14 18 (6-23) mg/dl Creatinine 0.79 0.72 (0.6-1.2) mg/dl Glucose 266 H 130 H (70-99(Fasting)) mg/dl Calcium 9.4 9.8 (8.6-10.3) mg/dl Intake and Output 01/31/23 02/01/23 02/01/23 22:59 06:59 14:59 Intake Total 27.167 / 601.584 Output Total 200 / 550 Balance 27.167 / 51.584 -200 / 51.584 Intake: IV .167 / 121.584 dilTIAZem HCL 125 mg In . / 121.584 Dextrose 5% 100 ml @ 5 MG/HR 5 mls/hr IV .Q24H [facility] Rx#: [id number] Output: Urine 200 / 550 Other: # Unmeasured Voids 1 Weight 95 kg Weight Measurement Method Built in [facility] Diagnostic Findings Telemetry: PG Care Time/CCT Total # of Minutes Spent Total Time Spent with Patient: Total time spent is greater than 50% in coordination of care (as documented) at patient's floor/unit and/or counseling patient: Coding Level of Care Code 84052 INT INP/OBS CARE 3/75MIN Diagnoses Atrial fibrillation with rapid ventricular response I48.91 Shortness of breath R06.02 Hypertension goal BP (blood pressure) < 130/80 I10 Hypercholesterolemia E78.00
[2023-02-01] MEDS ORDERED: METOPROLOL TARTRATE 50 MG TAB PO ONE (09:45)
[2023-02-01] MEDS ORDERED: METOPROLOL TARTRATE 25 MG TAB PO ONE (10:00)
--- NOTE | 2023-02-01 14:30 | Ultrasound Report ---
BILATERAL CAROTID DOPPLER STUDY HISTORY: Carotid artery stenosis COMPARISON: CTA neck 09/19/2013. TECHNIQUE: Real-time, grayscale, and color Doppler sonography of the carotid arteries was performed. Imaging reviewed in the transverse and longitudinal planes. All measurements were calculated based on NASCET criteria. FINDINGS: Antegrade flow is seen in the bilateral vertebral arteries. Minimal scattered calcified plaque within the carotid arteries. The peak systolic velocity within the right ICA is 56 cm/s. The right systolic ratio is 0.9. The peak systolic velocity within the left ICA is 56 cm/s. The left systolic ratio is 1.2. IMPRESSION: No hemodynamically significant stenosis seen within the carotid arteries. ACT 112: Negative or not required by law. Electronically signed by: Jeffrey Ramirez M.D. 02/01/2023 2:29 PM
--- NOTE | 2023-02-01 16:39 | Hospitalist Progress Note ---
Date of Service February 01, 2023 Assessment & Plan (1) Atrial fibrillation with rapid ventricular response: Plan: New onset A-fib -Presented with exertional shortness of breath, doing better, heart rate is currently controlled -Currently p.o. Cardizem and p.o. metoprolol, echocardiogram unremarkable, no indication for CORTNEY and cardioversion, patient can follow-up outpatient with cardiology, -We will proceed with carotid Doppler to see if there is indication for double antiplatelet therapy, otherwise there is no indication for dual antiplatelet therapy -Apparently patient history of remote stroke 20 years -Mild diastolic CHF due to A-fib with RVR, continue Lasix, patient feels -Possible discharge tomorrow if the heart rate is controlled (2) Hypertension goal BP (blood pressure) < 130/80: Plan: Blood pressure is fairly controlled with current regimen, (3) Diabetes type 2, uncontrolled: Plan: Continue basal bolus insulin regiment, continue scheduled regimen (4) Hypercholesterolemia: Plan: Continue statin Plan DVT prophylaxis: Anticoagulated Diet: DM/heart healthy Disposition: PCU for A-fib with RVR CODE STATUS: Full code Admission and Anticipated Discharge Date Admission Date: January 30, 2023 Subjective Currently heart rate is controlled, discussed with cardiology, continue Cardizem p.o. and metoprolol p.o., echocardiogram showed preserved ejection fraction, patient is on aspirin and Plavix because etiology unclear possibly because of his stroke that he had many years ago, will check for carotid Doppler to see if there is indication for travel antiplatelet agent, most likely patient the patient does not need double antiplatelet therapy, discussed with the rn clinical resource there is no indication for CORTNEY and cardioversion, can be followed as an outpatient Review of Systems Review of Systems: Some leg swelling, possibly little worse over the last month than before but not much different. Physical Exam Physical Exam: Constitutional: Alert, cooperative and in no distress. HEENT: Unremarkable Neck: No jugular venous distention, carotid pulses are irregular but otherwise normal and equal bilaterally without bruits. Pulmonary: Clear to auscultation bilaterally. Cardiac: Irregular rhythm with no murmur, gallop or rub. Abdomen: Soft, nontender with normal bowel sounds. Extremities: No edema. Distal pulses intact. Neurologic: No focal findings. Gait is steady. Skin: No rash, ecchymoses or petechiae. Results & Data Results & Data Vital Signs (Past 12 Hours) Vital Signs Temp Pulse Pulse Resp BP Pulse Ox O2 Del Method 02/01/23 15:29 36.5 C 79 17 108/74 93 Room Air 02/01/23 11:49 36.4 C L 65 18 116/83 92 Room Air 02/01/23 10:57 105 H 134/91 02/01/23 07:44 90 02/01/23 07:39 36.6 C 113 H 18 129/79 93 Room Air PG Care Time/CCT Total # of Minutes Spent Total Time Spent with Patient: Total time spent is greater than 50% in coordination of care (as documented) at patient's floor/unit and/or counseling patient: Coding Level of Care Code 14355 SUB INP/OBS CARE 2/35MIN Diagnoses Atrial fibrillation with rapid ventricular response I48.91 Hypertension goal BP (blood pressure) < 130/80 I10 Diabetes type 2, uncontrolled E11.65 Hypercholesterolemia E78.00
[2023-02-01] MEDS ORDERED: FUROSEMIDE 40 MG/4 ML VIAL IV SCH (17:00)
[2023-02-01] MEDS ORDERED: APIXABAN 5 MG TABLET PO SCH ×2 (18:15→21:00)
[2023-02-01] MEDS ORDERED: dilTIAZem HCL 180 MG CAPCR PO SCH (18:30)
--- NOTE | 2023-02-01 19:16 | Discharge Summary ---
Date of Service February 01, 2023 Admission HPI Per Admitting Provider New onset afib picked up on PCP office. She has had fatigue and easy exertional dyspnea for 1 month without chest pain. She has noticed some global shortness of breath, thinks she is a little more short of breath when laying flat. She has had no leg swelling. No wheezing. She has not had A-fib previously. She has had no problems with blood clots, no history of bleeding or GERD/ulcers. She is never required a blood transfusion. She takes DAPT for stroke 22 years ago. Has residual L sided weakness with no recent change. She feels well at the bedside, and feels normal at time of assessment while resting in bed. Heart rate remains approximately 130. She denies any personal or family history of ACS/MA. She endorses diabetes and hypertension for which she did take her insulin and medications this morning. Denies tobacco and alcohol use. Denies recent illness and has had no fever/chills/sweats/lightheadedness/dizziness. Denies syncope/presyncope Medical History: Reviewed Medications: Reviewed Surgical History: Reviewed Family history: Reviewed Allergies: Reviewed Social History: as noted Code Status: Full Principal Diagnosis New onset A-fib with RVR Discharge Exam Constitutional: Alert, cooperative and in no distress. HEENT: Unremarkable Neck: No jugular venous distention, carotid pulses are irregular but otherwise normal and equal bilaterally without bruits. Pulmonary: Clear to auscultation bilaterally. Cardiac: Irregular rhythm with no murmur, gallop or rub. Abdomen: Soft, nontender with normal bowel sounds. Extremities: No edema. Distal pulses intact. Neurologic: No focal findings. Gait is steady. Skin: No rash, ecchymoses or petechiae. Discharge Data Allergies Allergy/AdvReac Type Severity Reaction Status Date / Time Sulfa (Sulfonamide Allergy Mild UNKNOWN Verified 01/30/23 13:19 Antibiotics) RXN-HAPPENED A CHILD Consultations 01/30/23 16:31 ED Decision to Admit Stat 01/31/23 12:30 Consult Cardiology Routine Ordered Studies 02/01/23 11:34 US carotid doppler BI Routine Hospital Course (1) Atrial fibrillation with rapid ventricular response: New onset A-fib -Presented with exertional shortness of breath, doing better, heart rate is currently controlled 70s, discussed with cardiology agree with above management -Currently p.o. Cardizem and p.o. metoprolol, echocardiogram unremarkable, no indication for CORTNEY and cardioversion, patient can follow-up outpatient with cardiology in 4 to 6 weeks for possible cardioversion Dual antiplatelet therapy -Apparently patient history of remote stroke 20 years ago since then has been on dual antiplatelet, work-up did not reveal any indication of dual antiplatelet therapy, patient is recommended to stop -Mild diastolic CHF due to A-fib with RVR, -Resolved after patient received Lasix (2) Hypertension goal BP (blood pressure) < 130/80: Blood pressure is fairly controlled with current regimen, -His prolactin, and lisinopril were discontinued due to negative hypotensive effect of metoprolol and diltiazem (3) Diabetes type 2, uncontrolled: Continue basal bolus insulin regiment, continue scheduled regimen (4) Hypercholesterolemia: Continue statin Plan DVT prophylaxis: Anticoagulated Diet: DM/heart healthy Disposition: PCU for A-fib with RVR CODE STATUS: Full code Total Time Total Time Spent Total Time Spent (In Minutes): 45 minutes Discharge Plan Discharge Items Patient Disposition: Home - Self-Care Reason For Visit: AFIB RVR Discharge Diagnosis: new onset afib Activity: Resume your previous activity Lifting: None Bathing: No limitations Sexual Activity: When tolerated Exercise/Sports: None Driving/Machine Use: No limitations Weightbearing: Full weightbearing Non-emergency contact: Primary Care Provider and Supervisor Final Call non-emergency contact if: you have any medication questions and your pain is not controlled Follow-up/Referrals: Saud Alonso MD [Physician] - 03/03/23 (New onset A-fib, possibly cardioversion) Anne Allison MD [Primary Care Provider] - Diet: Carb Consistent or DM2 and Heart Healthy Addtl Attending Provider Instructions: 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 for March 06 Pending Studies at Discharge: Yes Studies:: Possible cardioversion Stand-Alone Forms: My [email or web address], Smoking Cessation Medications and DC Order Prescriptions: New Eliquis 5 mg Tablet 5 mg PO BID Qty: 120 0RF diltiazem HCl 180 mg capsule,extended release 24hr 180 mg PO DAILY Qty: 60 0RF metoprolol succinate 100 mg tablet extended release 24 hr 100 mg PO DAILY Qty: 60 0RF Continued nystatin 100,000 unit/gram powder 1 applic topical BID PRN (Reason: rash) Qty: 60 0RF (DME) pen needle, diabetic [BD Ultra-Fine Mini Pen Needle] 31 gauge x 3/16" needle See Rx Instructions .ROUTE .MEDSUPPLY Qty: 400 3RF Rx Instructions: Inject insulin four times daily Novolog FlexPen U-100 Insulin 100 unit/mL (3 mL) insulin pen See Rx Instructions subcut .COMPLEX Qty: 54 3RF Rx Instructions: 10-12 units subcutaneously with breakfast, 16-18 units with lunch, 12 units with supper; TDD 50 units insulin glargine [Basaglar KwikPen U-100 Insulin] 100 unit/mL (3 mL) insulin pen 16 unit SQ HS Qty: 15 3RF (DME) FreeStyle Lite Strips Strip See Rx Instructions .ROUTE .MEDSUPPLY Qty: 10 Rx Instructions: Test blood sugar once daily PRN (DME) FreeStyle Kelly 14 Day [place] Misc See Dose Instructions .ROUTE .MEDSUPPLY Dose Instruction: As directed Rx Instructions: testing 6 times per day (DME) FreeStyle Kelly 14 Day Sensor Kit See Dose Instructions .ROUTE .MEDSUPPLY Dose Instruction: As directed Rx Instructions: test 6 times per day rosuvastatin 10 mg tablet 10 mg PO DAILY Qty: 30 5RF multivitamin Tablet 1 tab PO DAILY aspirin 81 mg Tablet,Delayed Release (Dr/Ec) 81 mg PO DAILY Discontinued lisinopril 40 mg tablet 40 mg PO DAILY Qty: 90 3RF spironolactone 25 mg tablet 25 mg PO DAILY Qty: 90 3RF clopidogrel 75 mg tablet 75 mg PO QAM Discharge Orders: Discharge Order (Routine); Ordered 02/01/23 Ordered By: Chandu Schulz Admission Data Admit Date/Time: 01/30/23 17:20 Attending Provider: Chandu Schulz Admit Provider: Med Mata Primary Care Provider: Anne Allison Other Providers: Med Mata; Saud Alonso Other Interventions: Discharge Summary Assessment (RN) Last Done: 02/01/23 18:19 Coding Level of Care Code 12031 INP/OBS DISCH >30 MIN Diagnoses Atrial fibrillation with rapid ventricular response I48.91 Hypertension goal BP (blood pressure) < 130/80 I10 Diabetes type 2, uncontrolled E11.65 Hypercholesterolemia E78.00
--- NOTE | 2023-02-01 19:25 | Electrocardiogram Report ---
Test Reason : Blood Pressure : / mmHG Vent. Rate : 150 BPM Atrial Rate : 000 BPM P-R Int : 000 ms QRS Dur : 112 ms QT Int : 302 ms P-R-T Axes : 000 077 -33 degrees QTc Int : 477 ms Atrial fibrillation with rapid ventricular response Low voltage QRS Incomplete right bundle branch block T wave abnormality, consider inferior ischemia Abnormal ECG When compared with ECG of 31-JAN-2001 09:53, Atrial fibrillation has replaced Sinus rhythm Vent. rate has increased BY 55 BPM Incomplete right bundle branch block is now Present Confirmed by Saud Alonso ([id number]) on 02/01/2023 7:25:18 PM Referred By: Confirmed By:Saud Alonso
[2023-02-01] MEDS ORDERED: METOPROLOL TARTRATE 100 MG TAB PO SCH (21:00)
[2023-02-02] MEDS ORDERED: METOPROLOL SUCC 50MG EXT REL TAB PO SCH ×2 (09:00)
[2023-02-02] MEDS ORDERED: dilTIAZem HCL 180 MG CAPCR PO SCH (09:00)
== END 2023-02-01 19:00 | disposition home or self-care (01) | DRG 310 ==
LOC: ED 14:36 → SUATTDRO 17:20 → 2E 17:20